=== PATIENT | male | born 1990 | race Caucasian/White ===

== ENCOUNTER 2024-04-02 19:52 | Emergency (ER) | payer BC, SELFPAY ==
[2024-04-02 19:56] VITALS: BP 163/102
[2024-04-02] MEDS: BACTRIM DS 800 MG/160 MG 1 TABLET PO (21:29)
[2024-04-02 21:33] VITALS: BP 140/89
--- NOTE | 2024-04-02 23:06 | ED.GENMED ---
History of Present Illness
General
Chief Complaint: Musculo-Skeletal Complaint
Source: patient
Exam Limitations: none
Time Seen by Provider: 04/02/24 20:16
Nursing documentation reviewed up to this point in time: agreed with
History of Present Illness
History of Present Illness:
Patient to ED wsith complaint of redness swelling numbness to left 4th toe. Symptoms started 2 days ago. He was seen at yesterday and was placed on Keflex TID for suspected cellulitis. Today he developed numbness to toe. Brought self to ED
for eval. Denies fever/chills. No history of trauma.
Past History
Past History
ED Past Medical History: None
ED Past Surgical History: None
Review of Systems
Review of Systems
Allergies reviewed?: Yes
All Other Systems: ROS reviewed and negative except as documented in HPI and ROS
Constitutional: Reports no symptoms
Musculoskeletal: Reports no symptoms
Skin: Reports other (redness and swelling to left 4th toe)
Neurological: Reports numbness (numbness of left 4th toe)
Psychiatric: Reports no symptoms
Phy Exam
General Physical Exam
General Presentation: well appearing and no apparent distress
General age: appears stated age
General Skin: warm and dry
General Habitus: normal
General Mental: alert
Musculoskeletal Exam
Musculoskeletal Exam: full ROM, neuro vasc intact and other (No evidence of osteomyelitis on xray,)
Skin Exam
Skin Exam: warm/dry and other (redness and sswelling to left 4th toe consistent with cellulitis. Neurovascularly intact. Will continue Keflex, add bactrim DS)
Psychiatric Exam
Psychiatric Exam: normal mood/affect
Course
Orders/Labs/Results
Orders:
Orders
04/02/24 20:25
CR Toe(s) Min 2 Vw Left Urgent
Comment:
Reason For Exam: pain redness swelling 4th toe
04/02/24 21:22
Sulfamethox./Trimethoprim Ds [Bactrim Ds 800 mg/160 mg] 1 tablet PO NOW STA
Vital Signs
Initial and Last Documented VS:
Initial Vital Signs
Temp Pulse Resp BP Pulse Ox
98.6 F 106 17 163/102 98
04/02/24 19:56 04/02/24 19:56 04/02/24 19:56 04/02/24 19:56 04/02/24 19:56
Last Documented Vital Signs
Temp Pulse Resp BP Pulse Ox
98.6 F 72 16 140/89 99
04/02/24 19:56 04/02/24 21:33 04/02/24 21:33 04/02/24 21:33 04/02/24 21:33
*Critical Care Note
Total Time (30-74mins, 75-104mins- exclusive of procedures): Not Applicable
Update Note
Update Note:
Patient placed on Keflex yesterday for suspected cellulitis. He has had 3 doses without change in appearance. Noted numbness to toe today. left foot/toes neurovasc. intact. Full ROM. No osteo on xray. WIll continue keflex, bactrim DS added bid.
He is discharged home and he will follow up th PCP. Given instructions on s/s to return to ED and he is agreeable to plan
ED Attending Note
-
Portions of this chart may have been created with voice recognition software.� Occasional wrong word or��sound alike� substitutions may have occurred due to the inherent limitations of voice recognition software.
Discharge Plan
Departure
Patient Disposition: Home (Routine Discharge)
Date of Disposition: 04/02/24
Time of Disposition: 21:23
Patient with high blood pressure during this ER visit?: No
Condition: Good
Covid-19: Not Applicable
Discharge Problem:
Cellulitis of fourth toe
Instructions: Ibuprofen, Cellulitis (Skin Infection), Adult ED
Prescriptions:
New
sulfamethoxazole-trimethoprim [Bactrim DS] 800-160 mg tablet
1 tab PO BID Qty: 20 0RF
Referrals:
NONE,* [Family Provider] -
Activity Restrictions/Additional Instructions:
Continue the Keflex as prescribed. Return to the emergency department for fever/chills, increasing pain/redness/swelling to your toe, or for any further concerns.
Interventions
Interventions:
*Risk Screen - Suicide Last Done: 04/02/24 19:56
*General Assessment Last Done: 04/02/24 19:56
*Neglect/Abuse Screening Last Done: 04/02/24 19:56
ED- Fall Risk Assessment Last Done: 04/02/24 20:14
*ED COVID-19 Vaccine History Last Done: 04/02/24 20:14
*Nursing Disposition Last Done: 04/02/24 21:33
ED-Musculoskeletal Assessment Last Done: 04/02/24 20:14
Discharge Date and Time
Discharge Date/Time: 04/02/24 21:34
Print Language: SWEDISH
== END 2024-04-02 21:34 | disposition home or self-care (01) ==
LOC: EMR 19:52
PROVIDERS: EMERGENCY PHYSICIAN Emergency Medicine
DX: L03.039 Cellulitis of unspecified toe (principal)
CPT/HCPCS: 99283; 73660

== ENCOUNTER 2024-04-04 21:14 | Inpatient (IN) | payer BC, SELFPAY ==
[2024-04-04 17:32] VITALS: BP 148/96
--- NOTE | 2024-04-04 17:46 | ED.GENMED ---
History of Present Illness
<Elicia Stahl PA-C - Last Filed: 04/04/24 20:56>
General
Chief Complaint: Skin Problem
Source: patient
Exam Limitations: none
Time Seen by Provider: 04/04/24 17:46
Nursing documentation reviewed up to this point in time: agreed with
History of Present Illness
History of Present Illness:
Patient is a 33-year-old male presenting for evaluation of worsening cellulitis of left fourth toe. Patient states he initially noticed symptoms on Saturday with some pain on the underside of his left foot near base of toes. He noticed a very small
abrasion but did not think much of it. Starting on Saturday he noticed increased redness of his left fourth toe and went to an urgent care who prescribed Keflex for suspected cellulitis. Symptoms continued to worsen and was seen in our emergency
department on , 2 days ago, started on Bactrim for cellulitis. Symptoms continually progressed and today he noticed spreading of the redness up to his left foot and to surrounding toes. He came to the emergency department for further
evaluation.
Patient denies any systemic fever, chills, weakness, fatigue. He did have 1 episode of vomiting yesterday which he thinks was due to taking antibiotics on empty stomach.
Past History
<Elicia Stahl PA-C - Last Filed: 04/04/24 20:56>
Past History
ED Past Medical History: None
ED Past Surgical History: None
Review of Systems
<Elicia Stahl PA-C - Last Filed: 04/04/24 20:56>
Review of Systems
Allergies reviewed?: Yes
All Other Systems: ROS reviewed and negative except as documented in HPI and ROS
Phy Exam
<Elicia Stahl PA-C - Last Filed: 04/04/24 20:56>
Physical Exam
Physical Exam:
Vitals: Patient's vital signs are stable. Afebrile
General: Patient is well appearing, no acute distress. Nontoxic-appearing
Skin: Erythema, swelling, warmth to left fourth toe extending to surrounding toes and spreading of left foot. No other rashes noted.
Head: Normocephalic, atraumatic
Eyes: Sclera nonicteric. EOMs intact. No nystagmus.
Throat: Protecting airway
Neck: Normal ROM, no cervical spine tenderness, no meningismus
Cardiac: Regular rate and rhythm, no murmurs.
Pulm: Normal respiratory effort, no wheezes, rales, rhonchi heard on exam.
Abdomen: Abdomen soft. No abdominal tenderness.
Extremities: Significant erythema, warmth of left fourth digit extending to left third and fifth digits, as well. Some appearance of paronychia of left fourth toe although no fluctuance or drainage. Mild erythema extending to left midfoot. Left
lower extremity neurovascular intact. Great DP pulse PT pulse of LLE
Neuro: AAOx3. CN II-XII intact. No focal neurologic deficits.
Psychiatric: Normal affect.
Course
<Elicia Stahl PA-C - Last Filed: 04/04/24 20:56>
Orders/Labs/Results
Orders:
Orders
04/04/24 18:09
Complete Blood Count/With Diff Urgent
Comprehensive Metabolic Panel Urgent
ESR [Erythrocyte Sed Rate] Urgent
Lactic Acid Q4H
Comment: CANCEL 2nd LACTIC ACID IF 1st LACTIC ACID IS LESS THAN 2
Uric Acid Urgent
Blood Culture Q30M
LEONEL Source: Blood/Venous
Specimen Description:
Blood Culture Q30M
LEONEL Source: Blood/Venous
Specimen Description:
04/04/24 18:18
Vancomycin [Vancocin] 2,000 mg 0.9% Sodium Chloride 500 ml [Nss] 500 ml IV NOW
04/04/24 18:54
Vancomycin [Vancocin] 2,000 mg 0.9% Sodium Chloride 500 ml [Nss] 500 ml IV NOW
04/04/24 18:56
CeFAZolin 2 GRAM [Ancef] 2 grams in 10 ml IV NOW
Abnormal Lab Results
04/04/24
18:09
RBC 4.19 L 10^6/uL
(4.70-6.10)
Hgb 12.1 L g/dL
(13.0-18.0)
Hct 35.8 L %
(39.0-52.0)
Absolute Monos (auto) 0.7 H 10^3/uL
(0.1-0.6)
Monocytes % 11.7 H %
(1.7-9.3)
Creatinine 1.5 H mg/dL
(0.7-1.3)
04/04/24 18:09
04/04/24 18:09
Vital Signs
Initial and Last Documented VS:
Initial Vital Signs
Temp Pulse Resp BP Pulse Ox
98.8 F 90 16 148/96 97
04/04/24 17:32 04/04/24 17:32 04/04/24 17:32 04/04/24 17:32 04/04/24 17:32
Last Documented Vital Signs
Temp Pulse Resp BP Pulse Ox
98.8 F 77 16 133/86 100
04/04/24 17:32 04/04/24 19:46 04/04/24 19:46 04/04/24 19:46 04/04/24 19:46
<Ronnie Estrella MD - Last Filed: 04/04/24 18:25>
Orders/Labs/Results
Orders:
Orders
04/04/24 18:09
Complete Blood Count/With Diff Urgent
Comprehensive Metabolic Panel Urgent
ESR [Erythrocyte Sed Rate] Urgent
Lactic Acid Q4H
Comment: CANCEL 2nd LACTIC ACID IF 1st LACTIC ACID IS LESS THAN 2
Uric Acid Urgent
Blood Culture Q30M
LEONEL Source: Blood/Venous
Specimen Description:
Blood Culture Q30M
LEONEL Source: Blood/Venous
Specimen Description:
04/04/24 18:18
Vancomycin [Vancocin] 2,000 mg 0.9% Sodium Chloride 500 ml [Nss] 500 ml IV NOW
04/04/24 18:54
Vancomycin [Vancocin] 2,000 mg 0.9% Sodium Chloride 500 ml [Nss] 500 ml IV NOW
04/04/24 18:56
CeFAZolin 2 GRAM [Ancef] 2 grams in 10 ml IV NOW
Abnormal Lab Results
04/04/24
18:09
RBC 4.19 L 10^6/uL
(4.70-6.10)
Hgb 12.1 L g/dL
(13.0-18.0)
Hct 35.8 L %
(39.0-52.0)
Absolute Monos (auto) 0.7 H 10^3/uL
(0.1-0.6)
Monocytes % 11.7 H %
(1.7-9.3)
Creatinine 1.5 H mg/dL
(0.7-1.3)
04/04/24 18:09
04/04/24 18:09
Vital Signs
Initial and Last Documented VS:
Initial Vital Signs
Temp Pulse Resp BP Pulse Ox
98.8 F 90 16 148/96 97
04/04/24 17:32 04/04/24 17:32 04/04/24 17:32 04/04/24 17:32 04/04/24 17:32
Last Documented Vital Signs
Temp Pulse Resp BP Pulse Ox
98.8 F 77 16 133/86 100
04/04/24 17:32 04/04/24 19:46 04/04/24 19:46 04/04/24 19:46 04/04/24 19:46
<Elicia Stahl PA-C - Last Filed: 04/04/24 20:56>
MDM/Problems Addressed
Differential Diagnosis Includes:
Not limited to: cellulitis, paronychia
MDM/Problems Addressed:
33-year-old male presenting for evaluation of worsening cellulitis of the left fourth toe despite multiple rounds of oral antibiotics. Patient has been on both Keflex and Bactrim over the past 2 days that any improvement. Today he noticed
spreading of redness up his foot. He does have pain in his left foot and with weightbearing no fever, chills, weakness, fatigue. One episode of vomiting which he attributes to antibiotics on of the stomach. Vital signs stable, he is afebrile.
Physical exam as above. Patient is well-appearing, nontoxic. He does have erythema of left fourth toe spreading to surrounding toes and of the left foot. There is an aspect of paronychia of the left fourth toe without any obvious fluctuance or
area of drainage. Left lower extremity neurovascular intact. Great distal pulses. Given failure on outpatient antibiotics�will check basic labs, ESR, lactic, and blood cultures. Plan for admission for IV antibiotics and further evaluation. Did
speak to ID who recommended Vanco plus Ancef. Will hold off on imaging at this time�patient did have x-ray 2 days ago which showed no evidence of bone involvement.
Labs noted. No leukocytosis. ESR within normal limits. Creatinine elevated 1.5, no baseline. Lactic normal. Blood cultures pending.
Patient has been started on IV antibiotics, Vanco plus Ancef and admitted to hospitalist for further evaluation/management. ID will be consulted.
Chronic conditions affecting care:
Cellulitis failing outpatient therapy
Acute Exacerbation and/or Progression of Chronic Illness:
worsening cellulitis requirign IV abx
<Elicia Stahl PA-C - Last Filed: 04/04/24 20:56>
*Pulse Oximetry
Patient hypoxic: no
*EKG
Interpreted by ED Provider?: NA
*Polisher Implant Interpretation
Rate: Polisher Implant- N/A
*Critical Care Note
Total Time (30-74mins, 75-104mins- exclusive of procedures): Not Applicable
<Elicia Stahl PA-C - Last Filed: 04/04/24 20:56>
Patient Management
Discussion with other providers: Hospitalist and Maths Tutor (Infectious disease)
ED Attending Note
<Elicia Stahl PA-C - Last Filed: 04/04/24 20:56>
-
Portions of this chart may have been created with voice recognition software.� Occasional wrong word or��sound alike� substitutions may have occurred due to the inherent limitations of voice recognition software.
<Ronnie Estrella MD - Last Filed: 04/04/24 18:25>
ED Attending Note
Patient seen and examined by attending physician: Yes
I performed the substantive portion of visit, reviewed & personally made and approve the management plan that is documented in note by myself or CALLUM.: Yes
ED Attending Note:
Healthy 33-year-old male started noticing redness and swelling to his left second toe 5 days ago. Initially started Keflex. Bactrim was added 2 days ago. However symptoms have progressed. No systemic symptoms. No medical issues.
On exam patient has an erythematous left second toe with almost the appearance of an early paronychia although no fluctuance or drainage. There is a small dot on the volar aspect of the toe at the fourth MTP P joint. However no drainage no open
wound this actually is healing. There is erythema to the dorsal foot extending towards the ankle.
Impression is cellulitis to the left second toe. Failed outpatient antibiotics. Discussed with infectious disease. They recommend cefazolin 2 g every 8 and vancomycin.
Discharge Plan
Departure
Patient Disposition: Admit
Date of Disposition: 04/04/24
Time of Disposition: 18:23
Presentation/result/management discussed w/ accepting MD/DO: Hospitalist
Discharge Problem:
Cellulitis of fourth toe, left
Prescriptions:
No Action
sulfamethoxazole-trimethoprim [Bactrim DS] 800-160 mg tablet
1 tab PO BID Qty: 20 0RF
cephalexin [Keflex] 500 mg Capsule
500 mg PO Q8H
Referrals:
NONE,* [Family Provider] -
Interventions
Interventions:
*Risk Screen - Suicide Last Done: 04/04/24 18:01
*General Assessment Last Done: 04/04/24 17:32
*Neglect/Abuse Screening Last Done: 04/04/24 18:01
ED- Fall Risk Assessment Last Done: 04/04/24 18:01
*ED COVID-19 Vaccine History Last Done: 04/04/24 17:32
ED-Skin Assessment Last Done: 04/04/24 18:01
Discharge Date and Time
Print Language: [place]
[2024-04-04 18:00] VITALS: BMI 23.7
[2024-04-04 18:24] LABS: % Eosinophils 1.2 % (0-6); % Immature Granulocytes 0.2 % (0-0.5); % Lymphocytes 37.5 % (20.5-51.1); % Monocytes 11.7 % (1.7-9.3); % Neutrophils 48.4 % (42.2-75.2); Absolute Basophils 0.1 10^3/uL (0-0.2); Absolute Eosinophils 0.1 10^3/uL (0-0.7); Absolute Lymphocytes 2.3 10^3/uL (1.2-3.4); Absolute Monocytes 0.7 10^3/uL (0.1-0.6); Hematocrit 35.8 % (39.0-52.0); Hemoglobin 12.1 g/dL (13.0-18.0); Mean Corp Hgb Conc. 33.8 g/dL (33.0-37.0); Mean Corpuscular Hgb 28.9 pg (27.0-31.0); Mean Corpuscular Volume 85.4 fL (80.0-94.0); Mean Platelet Volume 10.3 fL (7.4-10.4); Nucleated Red Blood Cells % 0 % (-); Platelet Count 316 10^3/uL (130-400); Red Blood Cell Count 4.19 10^6/uL (4.70-6.10); Red Cell Dist. Width 11.9 % (11.5-14.5); White Blood Cell Count 6.1 10^3/uL (4.8-10.8)
[2024-04-04 18:31] LABS: Erythrocyte Sed Rate 11 mm/hour (0-20)
[2024-04-04 18:38] LABS: Lactic Acid 1.8 mmol/L (0.7-2.0)
[2024-04-04 18:39] LABS: ALT (SGPT) 43 U/L (0-50); AST (SGOT) 50 U/L (17-59); Albumin 4.5 g/dl (3.5-5.0); Alkaline Phosphatase 76 U/L (38-126); Blood Urea Nitrogen 14 mg/dl (9-20); Calcium 9.4 mg/dl (8.4-10.2); Carbon Dioxide 26 mmol/L (22-30); Chloride 106 mmol/L (98-107); Estimated Creatinine Clearance 86 ml/min; Glucose 86 mg/dl (70-99); Potassium 4.3 mmol/L (3.5-5.1); Sodium 142 mmol/L (135-145); Total Bilirubin 0.3 mg/dl (0.2-1.3); Total Protein 6.8 g/dl (6.3-8.2); eGFR > 60.00
[2024-04-04] MEDS: ANCEF 10 IV (19:08)
[2024-04-04] MEDS: VANCOCIN 540 MG IV (19:41)
[2024-04-04 19:46] VITALS: BP 133/86
--- NOTE | 2024-04-04 20:52 | HPS.HSE ---
Family Physician
-
Family Physician: * NONE
Chief Complaint
-
Red, swollen, toe
History of Present Illness
33-year-old man presents with worsening cellulitis of left fourth toe. Symptoms started on Saturday with pain on the underside of his left foot, near base of toes. He noticed a small abrasion on the underside of the toe. Starting on Saturday he
noticed increased redness of his left fourth toe and went to an urgent care. He was prescribed Keflex for cellulitis. His symptoms worsened and he was seen in our emergency department, 2 days ago. He was started on Bactrim for cellulitis.
Symptoms became worse and today the redness spread up to his left foot and to surrounding toes. He denies any systemic fever, chills, weakness, fatigue. He had 1 episode of vomiting yesterday (which he thinks was due to taking antibiotics on empty
stomach). He also questioned if this could have been from a tick bite. He works in [employer], often works with wet boots, and also walks in grass.
Medical History
Past Medical History
Past Medical History: Reports None
Past Surgical History: Reports None
Social History
Tobacco: Non-smoker
Alcohol: Occasional
Drug: None
Personal: Partner
Living: With Family
Employment: Employed
Family History
Family History: Not pertinent
Allergies / Home Medications
Allergies reflects when Allergies were last updated in [facility].
Home Medications with original date entered in [facility]
Allergy/Medication List:
Allergies
Allergy/AdvReac Type Severity Reaction Status Date / Time
bee venom protein (honey bee) Allergy Rash Verified 04/04/24 17:36
Home Medications
sulfamethoxazole 800 mg-trimethoprim 160 mg tablet (Bactrim DS) 1 tab PO BID #20 tabs 04/02/24
cephalexin 500 mg capsule 500 mg PO Q8H 04/04/24
Review of Systems
-
History Source: Patient
A 12 point ROS was completed and negative except as noted: Yes
Physical Exam
Vital Signs
Vital Signs
Temp Pulse Resp BP Pulse Ox
98.8 F 77 16 133/86 100
04/04/24 17:32 04/04/24 19:46 04/04/24 19:46 04/04/24 19:46 04/04/24 19:46
Physical Exam
General: Well Developed, Well Nourished, No Apparent Distress, Comfortable and Conversant
HEENT: NormoCephalic, Moist mucous membranes, Atraumatic, Nose Appears Normal and Ears Appear Normal
Respiratory: Clear
Cardiac: S1/S2 and Regular Rhythm; No Murmur
GI: Soft, Non Tender and Non Distended
Musculoskeletal: No Clubbing, No Cyanosis and No Edema
Skin: Warm and Dry
Neuro: Awake, Alert, Oriented and AO x 3
Psych: Calm
Laboratory Results
-
04/04/24 18:09
04/04/24 18:09
Laboratory Results
Lactic Acid Cancelled 04/04/24 22:15
Total Bilirubin 0.3 mg/dl (0.2-1.3) 04/04/24 18:09
AST 50 U/L (17-59) 04/04/24 18:09
ALT 43 U/L (0-50) 04/04/24 18:09
Alkaline Phosphatase 76 U/L (38-126) 04/04/24 18:09
Data Reviewed
-
Lab Data: Labs Reviewed by me
Impression/Plan
-
IMPRESSION:
33 man with cellulitis, failed outpt oral abx.
PLAN:
1. Cellulitis - will continue IV abx
ER discussed case with ID - recommended ancef and vanco.
2. Creatinine 1.5, may be from having large musculature.
IV saline
Recheck in am
Full code
VCD for DVTp
[2024-04-04 23:00] VITALS: BMI 24.1
[2024-04-04 23:01] VITALS: BP 143/91
[2024-04-04] MEDS: NSS 1000 IV (23:35)
[2024-04-04] MEDS: TYLENOL 650 MG PO (23:44)
--- NOTE | 2024-04-05 00:23 | PTCARENOTE ---
Pt admitted to [facility]. AAOx3. Regular heart sounds. Lungs, GI, and WNL. Pt lt foot is swollen and red near the toes. Pt appears comfortable. Pt given Tylenol for mild pain.
[2024-04-05] MEDS: ANCEF 10 IV ×3 (01:01→17:08)
[2024-04-05 07:00] VITALS: BP 125/74
--- NOTE | 2024-04-05 07:16 | PHA.VAN.IN ---
Assessment
- Assessment
Renal Function: Unknown baseline (SCr may appear elevated due to large musculature)
Maximum Temperature: 98.8
Minimum Temperature: 98
Concomitant Antimicrobials: Cefazolin
AUC Dosing Plan
- Empiric Dosing
Initial / Loading Dose: Vanc 2000mg--04/04 at 1941
Maintenance Regimen: Vanc 1250mg IV q12H
Estimated AUC (mcg*h/mL): 553
Estimated Peak (mcg*h/mL): 33
Estimated Trough (mcg/ml): 15
Estimated Half Life (H): 9.1
- Monitoring
No levels ordered at this time: Consider levels after 04/06 1800 dose
Pharmacokinetics Vancomycin I
- -
Patient Age: 33
Patient Sex: Male
Vancomycin Day #: 1
Indication: Skin And Soft Tissue
Requesting Provider: Tammy
Height / Weight:
Height 6 ft 4 in
Actual Weight 89.63 kg
IBW in k.8
Adjusted BW in k.9
Pertinent Past Medical History: Failed outpt tx with Keflex (04/02) and Bactrim (04/04)
- Vital Signs / Lab Results
Temp Pulse Resp BP Pulse Ox
98.0 F 66 18 143/91 98
04/04/24 23:01 04/04/24 23:01 04/04/24 23:01 04/04/24 23:01 04/04/24 23:51
Lab Results - Hematology
04/04/24
18:09
WBC 6.1
Lab Results - Chemistry
04/04/24
18:09
BUN 14
Creatinine 1.5 H
Estimated Creat Clear 86
Albumin 4.5
04/04/24 04/04/24
18:09 22:15
Lactic Acid 1.8 Cancelled
[2024-04-05] MEDS: VANCOCIN 275 MG IV ×2 (08:28→18:11)
[2024-04-05] MEDS: NSS 1000 IV (08:34)
[2024-04-05 08:38] LABS: Hematocrit 32.5 % (39.0-52.0); Hemoglobin 11.1 g/dL (13.0-18.0); Mean Corp Hgb Conc. 34.2 g/dL (33.0-37.0); Mean Corpuscular Hgb 28.2 pg (27.0-31.0); Mean Corpuscular Volume 82.7 fL (80.0-94.0); Mean Platelet Volume 10.8 fL (7.4-10.4); Platelet Count 271 10^3/uL (130-400); Red Blood Cell Count 3.93 10^6/uL (4.70-6.10); Red Cell Dist. Width 12.1 % (11.5-14.5); White Blood Cell Count 9.8 10^3/uL (4.8-10.8)
[2024-04-05 08:46] LABS: Blood Urea Nitrogen 13 mg/dl (9-20); Calcium 9.3 mg/dl (8.4-10.2); Carbon Dioxide 24 mmol/L (22-30); Chloride 107 mmol/L (98-107); Estimated Creatinine Clearance > 125 ml/min; Glucose 85 mg/dl (70-99); Potassium 4.6 mmol/L (3.5-5.1); Sodium 138 mmol/L (135-145); eGFR > 60.00
[2024-04-05] MEDS: TYLENOL 650 MG PO (12:42)
--- NOTE | 2024-04-05 13:12 | W.PN.HOSP.TC ---
Today's Communication/Plan
-
see outlined plan
Assessment / Plan
Assessment / Plan
Assessment:
L foot cellulitis
- failed OP Keflex and Bactrim
- started on IV Vanco (requires intensive monitoring of levels) and IV Ancef
- follow cultures
- ID consulted
- elevated L foot with 3 pillows
- compression therapy
- DVT study ordered
ASHLEY
- resolved
DVT ppx: SCDs
Code: Full
Anticipated Discharge: > 48 hours
Subjective/Interval History
-
Date of Service: April 05, 2024
states he thinks his L foot redness is worsening and he reports some twitches of pain going up the leg towards groin
Objective Data
-
Labs:
Laboratory Results
04/05/24
07:41
WBC 9.8
Hgb 11.1 L
Hct 32.5 L
Plt Count 271
Sodium 138
Potassium 4.6
Chloride 107
Carbon Dioxide 24
BUN 13
Creatinine 0.9
Glucose 85
Calcium 9.3
Vital Signs:
Vital Signs
Temp Pulse Resp BP Pulse Ox
98.3 F 77 17 125/74 99
04/05/24 07:00 04/05/24 07:00 04/05/24 07:00 04/05/24 07:00 04/05/24 07:00
I&O
04/04/24 04/05/24 04/06/24
06:59 06:59 06:59
Intake Total 1929
Balance 1929
Physical Exam
-
General: No Apparent Distress
HEENT: Normocephalic and Atraumatic
Respiratory: Negative Wheezes
Cardiac: Regular Rhythm and S1/S2
GI: Soft
Genito-urinary: No Costovertebral Tender
Musculoskeletal: Other (L foot cellulitis stemming from 4th toe towards dorsal food, with edema, erythema. pulses +2DP)
Neuro: AO x 3
Hematologic / Lymphatic: No Lymphadenopathy
Psych: Calm
Data Reviewed
-
Total Time Spent with Patient (in minutes): 51
Labs: Labs Reviewed by me
--- NOTE | 2024-04-05 13:29 | CON.ID ---
Consultation
-
Date/Time Consultation Requested: 04/05/24 8:42
Date/Time Consultation Performed: 04/05/24 13:30
Requesting Provider: Dr Fair
Performing Provider: Dr Morel
Reason for Consultation: cellulitis
Chief Complaint / Past History
Chief Complaint
Red, swollen, toe
History of Present Illness
Mr Palacios is a 33 year old male without significant past medical history, not obese, whop resented here last night for a 5 day history of progressive swelling, redness, tenderness of his left 4th toe and now foot. Issue began with a thorn or small
scab of the plantar aspect of the toe. No barry fevers or chills. Initially presented to urgent care and started keflex which he took, with progression, presented to the ER and started bactrim and continue the keflex. Took all medications as
prescribed. However with progression and new difficulty bending the toe. Works in the [employer] for a [employer]
Since arrival here no barry fevers, bp stable, wbc 9.8, hgb 111.1, plt 271, cr initially 1.5 now 0.9, blood cultures x2 no growth to date currently on vancomycin and cefazolin at my recommendation and the foot is elevated above the level of the
heart. The swelling and redness are notably improved. ID is consulted for assistance with management.
Past History
Past Medical History: None
Past Surgical History: None
Allergy History:
bee venom protein (honey bee) Allergy (Verified 04/04/24 17:36)
Rash
Medications Reviewed: Yes
Social History
Tobacco: Non-Smoker
Alcohol: Occasional
Drug: None
Family History
Family History: Not Pertinent
Review of Systems
Review of Systems
General: Negative Fever or Chills
All systems: All other systems were reviewed and were negative
Vital Signs
Temp Pulse Resp BP Pulse Ox
98.3 F 77 17 125/74 99
04/05/24 07:00 04/05/24 07:00 04/05/24 07:00 04/05/24 07:00 04/05/24 07:00
Physical Exam
Physical Exam
Constitutional: No Acute Distress
Cardiovascular: Regular Rate and S1/S2; Negative Murmur or Rub
Pulmonary: Clear and Symmetric; Negative Wheezes, Rales or Rhonchi
Gastrointestinal: Soft, Non Tender, Non Distended and Normal Bowel Sounds
Skin: Warm, Dry and Rash (erythema of the 3,4,5 digits of the L foot, healed tiny wound on the plantar 4th digit; mild warmth, improved swelling compare to photo i reviewed from last night on tiger text); Negative Jaundice
Lab / Diagnostic Study Results
04/05/24 07:41
04/05/24 07:41
Abs Immat Gran (auto) 0.0 10^3/uL (0-0.05) 04/04/24 18:09
Absolute Neuts (auto) 3.0 10^3/uL (1.4-6.5) 04/04/24 18:09
Absolute Lymphs (auto) 2.3 10^3/uL (1.2-3.4) 04/04/24 18:09
Absolute Monos (auto) 0.7 10^3/uL (0.1-0.6) H 04/04/24 18:09
Absolute Basos (auto) 0.1 10^3/uL (0-0.2) 04/04/24 18:09
Immature Gran % 0.2 % (0-0.5) 04/04/24 18:09
Neutrophils % 48.4 % (42.2-75.2) 04/04/24 18:09
Lymphocytes % 37.5 % (20.5-51.1) 04/04/24 18:09
Monocytes % 11.7 % (1.7-9.3) H 04/04/24 18:09
Eosinophils % 1.2 % (0-6) 04/04/24 18:09
Basophils % 1.0 % (0-2) 04/04/24 18:09
ESR 11 mm/hour (0-20) 04/04/24 18:09
Lactic Acid Cancelled 04/04/24 22:15
Microbiology Results
Micro:
04/04/24 18:09 Blood Culture - Pending
Blood/Venous
04/04/24 18:09 Blood Culture - Pending
Blood/Venous
Assessment / Plan
Nonpurulent Cellulitis of the L Toes and Foot
Tenosynovitis of the 4th digit - improving rapidly
- blood cultures x2 no growth to date
- continue vancomycin, cefazolin and elevation for today, expect quick transition to oral therapy in the next 24-48 hours
- follow clinically
--- NOTE | 2024-04-05 14:55 | CM ---
Patient with Dx L foot cellulitis. Receiving IV Abx. Per nurse assessment; ambulatory in room by self.
Met with patient who resides with his and 2 yr old daughter in a 2 story house.
The patient has been independent in ADLs and ambulation.
He is active and works.
The patient has no DME, prior VN.
PCP - [facility]
Pharmacy - [facility] Naren Torres
No CM d/c needs identified.
Plan home.
[2024-04-05 15:00] VITALS: BP 145/85
[2024-04-05] MEDS: NSS IV (17:05)
[2024-04-05 23:20] VITALS: BP 130/75
[2024-04-06] MEDS: ANCEF 10 IV ×2 (01:10→09:49)
[2024-04-06] MEDS: VANCOCIN 275 MG IV (05:40)
[2024-04-06 07:00] VITALS: BP 122/66
[2024-04-06 07:01] LABS: % Basophils 1.2 % (0-2); % Eosinophils 4.1 % (0-6); % Immature Granulocytes 0.3 % (0-0.5); % Lymphocytes 33.2 % (20.5-51.1); % Monocytes 10.1 % (1.7-9.3); % Neutrophils 51.1 % (42.2-75.2); Absolute Basophils 0.1 10^3/uL (0-0.2); Absolute Eosinophils 0.2 10^3/uL (0-0.7); Absolute Lymphocytes 1.9 10^3/uL (1.2-3.4); Absolute Monocytes 0.6 10^3/uL (0.1-0.6); Hematocrit 34.6 % (39.0-52.0); Hemoglobin 11.9 g/dL (13.0-18.0); Mean Corp Hgb Conc. 34.4 g/dL (33.0-37.0); Mean Corpuscular Hgb 28.7 pg (27.0-31.0); Mean Corpuscular Volume 83.4 fL (80.0-94.0); Mean Platelet Volume 10.5 fL (7.4-10.4); Nucleated Red Blood Cells % 0 % (-); Platelet Count 267 10^3/uL (130-400); Red Blood Cell Count 4.15 10^6/uL (4.70-6.10); White Blood Cell Count 5.9 10^3/uL (4.8-10.8)
[2024-04-06 07:59] LABS: Blood Urea Nitrogen 16 mg/dl (9-20); Calcium 9.6 mg/dl (8.4-10.2); Carbon Dioxide 25 mmol/L (22-30); Chloride 106 mmol/L (98-107); Estimated Creatinine Clearance > 125 ml/min; Glucose 88 mg/dl (70-99); Potassium 4.6 mmol/L (3.5-5.1); Sodium 139 mmol/L (135-145); eGFR > 60.00
--- NOTE | 2024-04-06 09:26 | PHA.VAN.FU ---
Vancomycin Assessment / Plan
- Assessment
Renal Function: Stable
WBC's are: WNL
In the past 24 hrs, patient has been: Afebrile
Concomitant Antimicrobials: Cefazolin
- Dosing Plan
Continue: 1250mg Q12H
- Monitoring Plan
No level(s) ordered at this time: Will hold off labs. Expected to transition to oral therapy in next 24hrs
- Follow Up
Pharmacy will continue to follow.
Vancomycin Follow UP
- -
Patient Age: 33
Patient Sex: Male
Vancomycin Day #: 2
Indication: Skin And Soft Tissue
Requesting Provider: Tammy
Height / Weight:
Height 6 ft 4 in
Actual Weight 89.63 kg
IBW in k.8
Adjusted BW in k.9
Pertinent Past Medical History: Failed outpt tx with Keflex (04/02) and Bactrim (04/04)
- Vital Signs / Lab Results
Temp Pulse Resp BP Pulse Ox
98.2 F 74 18 122/66 99
04/06/24 07:00 04/06/24 07:00 04/06/24 07:00 04/06/24 07:00 04/06/24 07:00
Lab Results - Hematology
04/04/24 04/05/24 04/06/24
18:09 07:41 06:27
WBC 6.1 9.8 5.9
Lab Results - Chemistry
04/04/24 04/05/24 04/06/24
18:09 07:41 06:27
BUN 14 13 16
Creatinine 1.5 H 0.9 0.9
Estimated Creat Clear 86 > 125 > 125
Albumin 4.5
04/04/24 04/04/24
18:09 22:15
Lactic Acid 1.8 Cancelled
Microbiology Results
04/04/24 18:09 Blood Culture - Preliminary
Blood/Venous No Growth in 24 hours- Final report to follow
04/04/24 18:09 Blood Culture - Preliminary
Blood/Venous No Growth in 24 hours- Final report to follow
--- NOTE | 2024-04-06 10:05 | W.PN.HOSP.TC ---
Today's Communication/Plan
-
DVT study for mid calf pain
Abx per ID and follow ID recs for DC timing
Assessment / Plan
Assessment / Plan
Assessment:
L foot cellulitis
- failed OP Keflex and Bactrim
- continue IV Vanco (requires intensive monitoring of levels) and IV Ancef
- follow cultures
- ID following
- elevated L foot with 3 pillows
- compression therapy
- DVT study ordered
ASHLEY
- resolved
DVT ppx: SCDs
Code: Full
Anticipated Discharge: Within 24 hours
Subjective/Interval History
-
Date of Service: April 06, 2024
reports celllulitis improving, less redness, less swelling
able to move toes more easily
Objective Data
-
Labs:
Laboratory Results
04/06/24
06:27
WBC 5.9
Hgb 11.9 L
Hct 34.6 L
Plt Count 267
Sodium 139
Potassium 4.6
Chloride 106
Carbon Dioxide 25
BUN 16
Creatinine 0.9
Glucose 88
Calcium 9.6
Vital Signs:
Vital Signs
Temp Pulse Resp BP Pulse Ox
98.2 F 74 18 122/66 99
04/06/24 07:00 04/06/24 07:00 04/06/24 07:00 04/06/24 07:00 04/06/24 07:00
I&O
04/05/24 04/06/24 04/07/24
06:59 06:59 06:59
Intake Total 1929 1590 / 1590
Balance 1929 1590 / 1590
Physical Exam
-
General: No Apparent Distress
HEENT: Normocephalic and Atraumatic
Respiratory: Negative Wheezes
Cardiac: Regular Rhythm and S1/S2
GI: Soft
Genito-urinary: No Costovertebral Tender
Musculoskeletal: No Edema
Neuro: AO x 3
Hematologic / Lymphatic: No Lymphadenopathy
Psych: Calm
Data Reviewed
-
Total Time Spent with Patient (in minutes): 52
Labs: Labs Reviewed by me
--- NOTE | 2024-04-06 14:42 | W.DS.TRANS ---
DC Summary - [employer]
-
Discharge Instructions:
Discharge Diagnosis/Procedures left foot cellulitis
Diet Regular
Activity As tolerated
Bathing Restrictions None
Instructions:
Stand-Alone Forms:
Changes to Home Medications: No
Discharge Medications:
DC Medications w/original date entered in [employer]
cephalexin 500 mg capsule 500 mg PO QID 10 days #40 caps 04/06/24
doxycycline hyclate 100 mg capsule (Vibramycin) 100 mg PO BID #20 caps 04/06/24
Home Medication Changes
Pending Results: No
Total time spent discharging patient (in min): 42
--- NOTE | 2024-04-06 14:43 | W.PN.ID1 ---
Date of Service
Date of Service: April 06, 2024
Today's Communication
- switch to keflex 500 mg PO QID and doxycycline 100 mg PO BID x10 more days
- discussed photosensitivity
- would allow patient to stay off of the foot 1 more day
- follow up with PCP
Assessment / Plan
Nonpurulent Cellulitis of the L Toes and Foot
Tenosynovitis of the 4th digit - improving rapidly
- blood cultures x2 no growth to date
- switch to keflex 500 mg PO QID and doxycycline 100 mg PO BID x10 more days
- discussed photosensitivity
- would allow patient to stay off of the foot 1 more day
- follow up with PCP
Chief Complaint
-: Cellulitis
Subjective / Review of Systems
afebrile
bp stable
without leukocytosis
cr stable
blood cultures no growth to date
Vital Signs / Physical Exam
Vital Signs
Vital Signs
Temp Pulse Resp BP Pulse Ox
98.2 F 74 18 122/66 99
04/06/24 07:00 04/06/24 07:00 04/06/24 07:00 04/06/24 07:00 04/06/24 07:00
Physical Exam
Constitutional: No Acute Distress
Cardiovascular: Regular Rate and S1/S2; Negative Murmur or Rub
Pulmonary: Clear and Symmetric; Negative Wheezes or Rales
Gastrointestinal: Soft, Non Tender, Non Distended and Normal Bowel Sounds
Skin: Warm, Dry and Rash (minimal residual erythema); Negative Jaundice
Objective Data
Lab Data
Lab Results
04/06/24 06:27
04/06/24 06:27
ESR 11 mm/hour (0-20) 04/04/24 18:09
Estimated Creat Clear > 125 ml/min 04/06/24 06:27
Lactic Acid Cancelled 04/04/24 22:15
Total Bilirubin 0.3 mg/dl (0.2-1.3) 04/04/24 18:09
AST 50 U/L (17-59) 04/04/24 18:09
ALT 43 U/L (0-50) 04/04/24 18:09
Alkaline Phosphatase 76 U/L (38-126) 04/04/24 18:09
Most recent labs reviewed.
Micro Results:
04/04/24 18:09 Blood Culture - Preliminary
Blood/Venous No Growth in 24 hours- Final report to follow
04/04/24 18:09 Blood Culture - Preliminary
Blood/Venous No Growth in 24 hours- Final report to follow
Care Review
Plan reviewed with: Physician (Dr Fair)
[2024-04-06 14:47] VITALS: BP 163/89
== END 2024-04-06 15:00 | disposition home or self-care (01) | DRG 603 ==
LOC: 3 WEST ACU 21:14
PROVIDERS: Physician Assistant; ADMITTING PHYSICIAN Internal Medicine; ATTENDING PHYSICIAN Internal Medicine; CONSULT PHYSICIAN Student in an Organized Health Care Education/Training Program; EMERGENCY PHYSICIAN Emergency Medicine
DX: L03.032 Cellulitis of left toe (principal); N17.9 Acute kidney failure, unspecified; M65.9 Synovitis and tenosynovitis, unspecified
CPT/HCPCS: 80048; 80053; 83605; 84550; 85025; 85027; 85652; 87040; 93971; 96365; 96366; 96375; 99284

== ENCOUNTER → 2025-07-08 08:31 | Outpatient (REF) | payer BC, SELFPAY | LOC: RCS 08:31 | PROVIDERS: ATTENDING PHYSICIAN Physician Assistant | DX: Z13.6 Encounter for screening for cardiovascular disorders (principal); Z82.79 Family history of other congenital malformations, deformations and chromosomal abnormalities | CPT/HCPCS: 93306 ==